=== PATIENT | male | born 1965 | race Caucasian/White ===

== ENCOUNTER 2018-07-06 18:26 | Emergency (ER) | payer BC ==
[~2018-07-06] VITALS: Ht 180.3 cm; Wt 78.0 kg
[2018-07-06 18:33] VITALS: BP 157/81; Ht 180.3 cm; Wt 78.0 kg
== END 2018-07-06 20:25 | disposition home or self-care (01) ==
LOC: ED 18:26
DX: S39.012A Strain of muscle, fascia and tendon of lower back, initial encounter (principal); X58.XXXA Exposure to other specified factors, initial encounter; Y93.89 Activity, other specified; Y92.89 Other specified places as the place of occurrence of the external cause; Y99.8 Other external cause status